=== PATIENT | male | born 1945 | race Caucasian/White ===

== ENCOUNTER 2016-08-05 07:16 | Day surgery (SDC) | payer MEDICARE, OTHER ==
[2016-08-05] VITALS (11 sets, daily range): BP systolic 90–170; BP diastolic 55–79; PULSE 62–68; RESP 11–18; Ht 167.6 cm; Wt 60.4 kg
[~2016-08-05] VITALS: Ht 167.6 cm; Wt 60.4 kg
[~2016-08-05 07:16] MED LIST: ASPRIN; BENAZEPRIL; GLIM1TAB2 PO; MTF1000T PO; SIMVASTATIN; [UNRECOGNIZED DRUG - OTHER]
[2016-08-05] MEDS ORDERED: CEFAZOLIN 2 GM/50 ML (PMX) 50 ML IVPB ONE (07:30)
[2016-08-05] MEDS ORDERED: SOD CHLORIDE 0.9% 1,000 ML IV ONE (07:30)
[2016-08-05] MEDS ORDERED: ASPI325T4 PO (08:35)
[2016-08-05] MEDS ORDERED: ATOR40TA68 PO (08:36)
[2016-08-05] MEDS ORDERED: DOCU-144 PO (08:36)
[2016-08-05] MEDS ORDERED: CARV12.598 PO (08:37)
[2016-08-05] MEDS ORDERED: GLIP-95 PO (08:37)
[2016-08-05] MEDS ORDERED: DAPA5TAB PO (08:37)
[2016-08-05] MEDS ORDERED: LOSA100T7 PO (08:38)
[2016-08-05] MEDS ORDERED: MTF1000T PO (08:40)
[2016-08-05] MEDS ORDERED: ZOLP5TAB7 PO (08:41)
[2016-08-05] MEDS ORDERED: PROPOFOL 40 ML ONE (10:00)
[2016-08-05] MEDS ORDERED: FENTAnyl 50 MCG/ML VIAL ONE (10:01)
[2016-08-05] MEDS ORDERED: BUPIVACAINE 0.25% (MPF) 30 ML INJ ONE (10:11)
[2016-08-05] MEDS ORDERED: PROPOFOL 20 ML ONE (10:22)
--- NOTE | 2016-08-05 10:38 | OPR ---
Date/Time of Note Date/Time of Note DATE: 08/05/16 TIME: 10:37 Operative Report Procedure Date: August 05, 2016 Preoperative Diagnosis back mass 5 cm Postoperative Diagnosis same Operation Performed back mass excision 5 cm incision and 5 cm mass localized adjacent tissue transfer with the use of skin flaps 15 sq cm defect Surgeon: Renetta WATSON Specimens back mass Renetta WATSON August 05, 2016 10:38
[2016-08-05] MEDS ORDERED: INSULIN ASPART [NOVOLOG] 3 ML PEN SC ONE (11:00)
[2016-08-05] MEDS ORDERED: EPHEDrine SULFATE 50 MG/5 ML SYG IV PRN (11:00)
[2016-08-05] MEDS ORDERED: LABETALOL HCL 20MG INJ IV PRN (11:00)
[2016-08-05] MEDS ORDERED: ONDANSETRON 4 MG INJ IV PRN (11:00)
[2016-08-05] MEDS ORDERED: MEPERIDINE 25 MG INJ IV PRN (11:00)
[2016-08-05] MEDS ORDERED: HYDROCODONE/APAP (5/325) TAB PO ONE (11:00)
[2016-08-05] MEDS ORDERED: DIPHENHYDRAMINE 50 MG INJ IV PRN (11:00)
[2016-08-05] MEDS ORDERED: FENTAnyl 50 MCG/ML VIAL IV PRN ×3 (11:00)
[2016-08-05] MEDS ORDERED: hydrALAzine 20 MG INJ IV PRN (11:00)
--- NOTE | 2016-08-05 11:40 | OPR ---
DATE OF OPERATION: 08/05/2016 INDICATION: This is a 71-year-old male with a back mass. He requests surgical excision. Risks, alternatives, benefits, and personnel were discussed with patient. Patient expressed understanding and consents to the operation. PREOPERATIVE DIAGNOSIS: Back mass. POSTOPERATIVE DIAGNOSIS: Back mass. OPERATION PERFORMED: 1. Excision of back mass with 5 cm size incision and 5 x 3 cm mass. 2. Localized adjacent tissue transfer with the use of skin flaps with 15 square cm defect. SURGEON: Kvng Iraheta MD SPECIMEN: Back mass. COMPLICATIONS: None. ANESTHESIA: General. PROCEDURE: The patient was taken to the OR and prepped and draped in the usual sterile fashion. Surgical timeout was performed. IV antibiotics were given. An elliptical incision was made over the back mass. Dissection cautery was carried down to the mass and circumferentially excised. There was good hemostasis. Irrigation was used to wash out. Due to the large tissue defect, localized adjacent tissue transfer with the use of skin flaps was performed. Multilayer closure with interrupted 3-0 Vicryl and skin lizeth. Local anesthesia was injected and dry dressings were applied. Dictated By: KVNG IRAHETA MD SB/LELE Conf#: [id number] DID#: [id number] MTDD
--- NOTE | 2016-08-05 20:23 | RADRPT ---
Vent Rate: 68 bpm RR Interval: 0 msec OR Interval: 154 msec QRS Duration: 84 msec QT Interval: 368 msec QTC Interval: 391 msec P-R-T [place]: 78 - 79 - 81 degrees Normal sinus rhythm Normal ECG Electronically Signed By: Ke Osborne [id number]
== END 2016-08-05 12:06 | disposition home or self-care (01) ==
LOC: SDS 07:16
PROVIDERS: ATTEND Surgery
DX: L72.0 Epidermal cyst (principal); I10 Essential (primary) hypertension; E11.9 Type 2 diabetes mellitus without complications; I25.10 Atherosclerotic heart disease of native coronary artery without angina pectoris
CPT/HCPCS: 14000; 82962; 88307; 93005; J1815; J3010

== ENCOUNTER 2017-08-29 15:46 | Inpatient (IN) | END 2017-08-31 13:38 | disposition home or self-care (01) | DRG 291 ==